=== PATIENT | male | born 1935 | race Caucasian/White ===

== ENCOUNTER 2016-09-11 12:28 | Emergency (ER) | payer MEDICARE, BC ==
[2016-09-11 13:13] LABS: BASOPHILS 0.2 %; BASOPHILS ABSOLUTE 0.03 10/3/uL (0.0-0.16); EOSINOPHILS 1.8 %; EOSINOPHILS ABSOLUTE 0.23 10/3/uL (0.0-0.53); ER CBC TAT 0 Hrs 08 Mins; HEMATOCRIT 40.7 % (40.0-51.0); IMMATURE GRANULOCYTES 0.4 %; IMMATURE GRANULOCYTES ABSOLUTE 0.05 10/3/uL (0.0-0.11); LYMPHOCYTES 7.5 %; LYMPHOCYTES ABSOLUTE 0.95 10/3/uL (0.67-4.30); MEAN CORPUS HGB CONC 31.9 g/dL (32.0-36.0); MEAN CORPUSCULAR HEMOGLOB 25.7 pg (26.0-34.0); MEAN CORPUSCULAR VOLUME 80.4 fL (80-100); MEAN PLATELET VOLUME 10.4 fL (9.2-13.0); MONOCYTES 5.1 %; MONOCYTES ABSOLUTE 0.64 10/3/uL (0.21-1.20); NEUTROPHILS ABSOLUTE 10.76 10/3/uL (2.02-8.40); PLATELET COUNT 222 10/3/uL (150-400); RBC DISTRIBUTION WIDTH 17.4 % (12.0-16.0); RED CELL COUNT 5.06 10/6/uL (4.7-6.1); WHITE BLOOD CELLS 12.7 10/3/uL (4.5-10.5)
[2016-09-11 13:14] LABS: MANUAL DIFF NO %
[2016-09-11 13:24] LABS: INTERNATIONAL NORMAL RATI 2.3 UNITS (-); PROTIME (NOT ORD) 24.8 SEC (12.0-14.5)
[2016-09-11 13:31] LABS: ALBUMIN 3.2 G/DL (3.5-5.0); ALKALINE PHOSPHATASE 64 U/L (45-117); BUN (BLOOD UREA NITROGEN) 17 MG/DL (6-23); CALCIUM, SERUM 8.7 MG/DL (8.5-10.4); CHLORIDE, SERUM 104 MMOL/L (96-112); CO2 (CARBON DIOXIDE) 26 MMOL/L (24-34); CREATININE 1.26 MG/DL (0.70-1.30); GFR AFRICAN AMERICAN 62 ML/MIN (>=60); GFR NON AFRICAN AMERICAN 54 ML/MIN (>=60); GLOBULIN 3.2 G/DL (2.5-4.1); GLUCOSE, SERUM 104 MG/DL (60-99); POTASSIUM, SERUM 3.9 MMOL/L (3.5-5.3); SGOT(AST) 12 U/L (5-40); SGPT(ALT) 13 U/L (5-65); SODIUM, SERUM 141 MMOL/L (135-148); TOTAL BILIRUBIN 1.2 MG/DL (0-1.2); TOTAL PROTEIN 6.4 G/DL (6.0-8.5); TROPONIN I <0.02 NG/ML (<0.05)
[2016-09-11 13:37] LABS: INFLUENZA A SCREEN NEGATIVE (NEGATIVE); INFLUENZA B SCREEN NEGATIVE (NEGATIVE)
[2017-01-14] MEDS ORDERED: SINEQUAN 50 MG50 MG PO (09:48)
[2017-01-14] MEDS ORDERED: DUONEB INH (09:49)
[2017-01-14] MEDS ORDERED: L40 PO (09:49)
[2017-01-14] MEDS ORDERED: LEVOTHYROXIN75 MCG PO (09:49)
[2017-01-14] MEDS ORDERED: GLUCPH PO (09:51)
[2017-01-14] MEDS ORDERED: NEXIUM40 PO (09:51)
[2017-01-14] MEDS ORDERED: P1 PO (09:52)
[2017-01-14] MEDS ORDERED: ZOCOR40 PO (09:52)
[2017-01-14] MEDS ORDERED: C5 PO (09:53)
[2017-01-14] MEDS ORDERED: FLOMAX4 PO (09:53)
[2017-01-14] MEDS ORDERED: VITAMIN D31000 UNIT PO (09:55)
[2017-01-14] MEDS ORDERED: C1 PO (09:55)
[2017-01-14] MEDS ORDERED: PRIN5 PO (09:56)
[2017-01-14] MEDS ORDERED: ANOROELLIPTA INH (09:56)
[2017-01-14] MEDS ORDERED: COREG6 PO (09:57)
[2017-01-14] MEDS ORDERED: PULMICORT180 MCG INH (09:57)
== END 2016-09-11 16:10 | disposition home or self-care (01) ==
LOC: ER 12:28
PROVIDERS: Emergency Medicine
DX: J44.9 Chronic obstructive pulmonary disease, unspecified (principal); J40 Bronchitis, not specified as acute or chronic; I48.91 Unspecified atrial fibrillation; Z87.891 Personal history of nicotine dependence; Z95.0 Presence of cardiac pacemaker
CPT/HCPCS: 71010; 80053; 83605; 83880; 84484; 85025; 85610; 87040; 87804; 93005; 96374; 96375; 99285; J2930